=== PATIENT | female | born 1955 | race Caucasian/White ===

== ENCOUNTER → 2016-09-24 | Outpatient (CLI) | payer BC ==
--- NOTE | 2016-09-24 08:39 | DI ---
CT ABDOMEN/PELVIS W/O CONTRAST,09/24/2016 8:08 AM: Clinical History: Lower abdominal pain Previous Exam: None at this facility. Findings: Multiple helically acquired CT images are obtained through the abdomen and pelvis without contrast, a nd demonstrate a normal-appearing urinary bladder. There is no free fluid. There is no free air. The liver, gallbladder, spleen, pancreas, adrenals and kidneys are unremarkable. There is S-shaped scoliosis of the thorax the lumbar spine. The appendix is within normal limits. Mild degenerative changes are seen of the hips worse on the right than the left. There is no hydronephrosis. Impression: No acute intra-abdominal pathology to explain lower abdominal pain.
== END ==
LOC: CT 07:42
PROVIDERS: ATTEND Nurse Practitioner Family
DX: R10.84 Generalized abdominal pain (principal)
CPT/HCPCS: 74176